=== PATIENT | female | born 1995 | race African-American/Black ===

== ENCOUNTER 2016-08-30 08:21 | Emergency (ER) | payer OTHER ==
[~2016-08-30] VITALS: Ht 165.1 cm; Wt 63.3 kg
[~2016-08-30 08:21] MED LIST: ONETAB17; Z.0.NO CURRENT MEDS
[2016-08-30 08:24] VITALS: BP 107/73; PULSE 85; RESP 14; TEMP 97; O2SAT 100
[2016-08-30 08:41] LABS: BLOOD, URINE SMALL (NEG); GLUCOSE,URINE NEG (NEG); KETONE, URINE NEG (NEG); NITRITE,URINE POS (NEG)
[2016-08-30 08:42] LABS: URINE COLOR YELLOW (YELLW/STRAW)
[2016-08-30 08:49] LABS: WBC, URINE INNUM /hpf (0-5)
[2016-08-30 08:50] LABS: BACTERIA, URINE MOD /hpf
[2016-08-30 08:52] LABS: COMMENT (UR) CULTURE INDICATED; CULTURE IF INDICATED CULTURE INDICATED; MUCUS URINE FEW /lpf (OCC)
[2016-08-30] MEDS ORDERED: PYRI200T4 PO (09:01)
[2016-08-30] MEDS ORDERED: MACR100C2 PO (09:01)
--- NOTE | 2016-08-30 09:02 | PD ---
HPI Chief Complaint: Complaint Time Seen by Provider: 08:46 Travel History International Travel<30 days: No Contact w/Intl Traveler<30days: No Traveled to known affect area: No History of Present Illness HPI This is a 21-year-old female who presents to the emergency department with 2 weeks of dysuria, urgency, frequency, constant, worsening with some intermittent low back pains. She denies any fevers or chills and denies any vomiting. She says she went to Dr. Marin last week and was checked for STDs and everything was normal. She denies any vaginal discharge.. PFSH Past Medical History Medical History: Denies Significant Hx Immunizations Current: Yes Influenza Vaccination: No ?: Not LMP: 3 weeks ago, irr. Past Surgical History Surgical History: No Previous Surgery Social History Alcohol Use: Yes (OCCAS) Tobacco Use: No Substance Use: Yes (MARIJUANA) Allergies-Medications (Allergen,Severity, Reaction): Uncoded Allergies: FIGS (Adverse Reaction, Severe, Swelling, 08/30/16) Reported Meds & Prescriptions Reported Meds & Active Scripts Active No Active Prescriptions or Reported Medications Review of Systems Except as stated in HPI: all other systems reviewed are Neg Physical Exam Narrative GENERAL:Well appearing, no acute distress SKIN: Warm and dry. HEAD: Atraumatic. Normocephalic. EYES: Pupils equal and round. No injection or drainage. ENT: Moist mucous membranes NECK: Trachea midline. CARDIOVASCULAR: Regular rate and rhythm. No murmur appreciated. RESPIRATORY: Clear to auscultation. Breath sounds equal bilaterally. GASTROINTESTINAL: Abdomen soft, mildly tender to palpation in the suprapubic region with no rebound or guarding.. MUSCULOSKELETAL: No obvious deformities. NEUROLOGICAL: Awake and alert. No obvious cranial nerve deficits. Moving all extremities. PSYCHIATRIC: Appropriate mood and affect; insight and judgment normal. Data Data Last Documented VS Vital Signs Date Time Temp Pulse Resp B/P Pulse Ox O2 Delivery O2 Flow Rate FiO2 08/30/16 08:24 97.0 85 14 107/73 100 Orders Urinalysis - C+S If Indicated (08/30/16 08:27) Ed Urine Pregnancytest Poc (08/30/16 08:27) Urine Culture (08/30/16 08:30) Labs Laboratory Tests Test 08/30/16 08:30 Urine Color YELLOW Urine Turbidity HAZY Urine pH 7.0 Urine Specific [place] 1.024 Urine Protein 30 mg/dL Urine Glucose (UA) NEG mg/dL Urine Ketones NEG mg/dL Urine Occult Blood SMALL Urine Nitrite POS Urine Bilirubin NEG Urine Leukocyte Esterase LARGE Urine RBC 4-9 /hpf Urine WBC INNUM /hpf Urine Squamous Epithelial 6-8 /hpf Cells Urine Bacteria MOD /hpf Urine Mucus FEW /lpf Microscopic Urinalysis Comment CULTURE INDICATED MDM Medical Decision Making Medical Screen Exam Complete: Yes Emergency Medical Condition: Yes Interpretation(s) afebrile, no tachycardia, normotensive urinalysis: no infection Differential Diagnosis Urinary tract infection, pyelonephritis, nephrolithiasis, vaginitis Narrative Course This is a 21-year-old female who presents to the emergency department with dysuria, urgency and frequency classic for urinary tract infection. She is nontoxic appearing. Urinalysis is consistent with UTI. Patient will be discharged on Macrobid and can follow-up with her primary care physician as needed. Diagnosis Primary Impression: Urinary tract infection Qualified Code: N30.00 - Acute cystitis without hematuria Patient Instructions: General Instructions Additional Instructions: If you develop fever, persistent vomiting, back pain, or inability to eat return to the emergency department as your urine infection may have progressed to a kidney infection. Complete your antibiotics as prescribed. Stay well hydrated with Gatorade or water. Followup with your primary care physician in 2-3 days if your symptoms have not resolved. Med/Other Pt SpecificInfo: Prescription(s) given Scripts Phenazopyridine (Pyridium)200 Mg Oql215 Mg PO Q8H PRN (DYSURIA) 3 Days Ref 0 Prov:Lissette Lawrence MD 08/30/16 Nitrofurantoin Monohydrate Macrocrystals (Macrobid)100 Mg Cds506 Mg PO BID 7 Days Prov:Lissette Lawrence MD 08/30/16 Disposition: 01 DISCHARGE HOME Condition: Stable Lissette Lawrence MD Aug 30, 2016 09:02
== END 2016-08-30 09:19 | disposition home or self-care (01) ==
LOC: PHED 08:21
DX: N39.0 Urinary tract infection, site not specified (principal); B96.20 Unspecified Escherichia coli [E. coli] as the cause of diseases classified elsewhere
CPT/HCPCS: 81001; 84703; 87077; 87086; 87186; 99283

== ENCOUNTER 2017-02-06 15:39 | Emergency (ER) | payer OTHER ==
[~2017-02-06] VITALS: Ht 154.9 cm; Wt 60.0 kg
[~2017-02-06 15:39] MED LIST changes: +MACR100C2 PO; -ONETAB17; +PYRI200T4 PO; -Z.0.NO CURRENT MEDS
[2017-02-06 15:41] VITALS: BP 100/59; PULSE 120; RESP 20; TEMP 98.9; O2SAT 98
--- NOTE | 2017-02-06 15:58 | PD ---
HPI . right leg laceration Chief Complaint: Laceration/Skin Injury Time Seen by Provider: 15:57 Travel History International Travel<30 days: No Contact w/Intl Traveler<30days: No Traveled to known affect area: No History of Present Illness HPI 21-year-old female who was up-to-date on her tetanus shot here with a right leg laceration. Patient forgot her keys in the house and was trying to break into a window when she cut her lateral right leg. She denies any pain at this time. Bleeding is controlled. PFSH Past Medical History Immunizations Current: Yes ?: Not LMP: 02/06/17 Social History Alcohol Use: Yes (OCCAS) Tobacco Use: No Substance Use: Yes (MARIJUANA) Allergies-Medications (Allergen,Severity, Reaction): Uncoded Allergies: FIGS (Adverse Reaction, Severe, Swelling, 08/30/16) Reported Meds & Prescriptions Reported Meds & Active Scripts Active Pyridium (Phenazopyridine HCl) 200 Mg Tab 200 Mg PO Q8H PRN 3 Days Macrobid (Nitrofurantoin Monoh/Nitrofur Macro) 100 Mg Cap 100 Mg PO BID 7 Days Review of Systems General / Constitutional: No: Fever Eyes: No: Visual changes HENT: No: Headaches Cardiovascular: No: Chest Pain or Discomfort Respiratory: No: Shortness of Breath Gastrointestinal: No: Abdominal Pain Genitourinary: No: Dysuria Musculoskeletal: No: Pain Skin: Positive Other (right leg laceration ), No Rash Neurologic: No: Weakness Psychiatric: No: Depression Endocrine: No: Polydipsia Hematologic/Lymphatic: No: Easy Bruising Physical Exam Narrative GENERAL: AAO x 3, no acute distress, Well-nourished, well-developed patient. SKIN: Warm and dry. No visible rashes or bruising. 9 cm laceration on the right lateral calf, no visible tendon, muscle, vessel or bone. mild bleeding HEAD: Normocephalic and atraumatic. EYES: No scleral icterus. No injection or drainage. ENT: No nasal drainage noted. Mucous membranes pink. Airway patent. NECK: Supple, trachea midline. No JVD. CARDIOVASCULAR: tachycardia (nervous about laceration) prior to dc hr reduced to 100 RESPIRATORY: Breath sounds equal bilaterally. No accessory muscle use. No rhonchi or rales. GASTROINTESTINAL: visual inspection EXTREMITIES: No cyanosis or edema. laceration to right lateral leg, all digits move normally, pulses intact BACK: No obvious deformity. 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 Data Data Last Documented VS Vital Signs Date Time Temp Pulse Resp B/P Pulse Ox O2 Delivery O2 Flow Rate FiO2 02/06/17 15:41 98.9 120 20 100/59 98 Room Air Orders Lidocaine 1% Inj (50 Ml) (Xylocaine 1% I (02/06/17 16:00) [facility] Medical Decision Making Medical Screen Exam Complete: Yes Emergency Medical Condition: Yes Medical Record Reviewed: Yes Differential Diagnosis superficial leg laceration, less likely deep tissue injury, skin abrasion Narrative Course 21-year-old female here with a 9 cm laceration to her right lateral leg. Patient gave verbal consent to repair. 18 stanley were placed without incident. I advised patient that this area will likely scar. Recommend removal in 10-14 days. She tells me she will have this done at a primary care provider. We have discussed signs of infection. We discussed generalized wound care. Patient verbalized understanding of instructions, questions were answered, and thanked me for their care. I advised them if their condition worsens, please return to the nearest emergency room for further care. Procedures Procedure Narrative LACERATION LOCATION: Right lateral leg LENGTH: 9 cm NUMBER OF STITCHES/STANLEY: 18 stanley REPAIR: The area of the laceration was prepped with Betadine and sterilely draped. The laceration was infiltrated with 1% lidocaine. The wound was copiously irrigated and explored without evidence of foreign body, tendon injury or neurovascular injury. The wound was closed using stanley. This was a single layer repair. A sterile dressing was applied. The patient was advised to keep the dressing clean and dry. Patient tolerated the procedure well. Diagnosis Primary Impression: Leg laceration Qualified Code: S81.811A - Leg laceration, right, initial encounter Patient Instructions: General Instructions Additional Instructions: Please return to emergency department if your symptoms return or worsen. Follow up with your primary care provider. Take medications as prescribed. Keep area clean and dry. Use gauze as we discussed and change 1-2 times a day. Watch for signs of infection: fever, redness, swelling, warmth, pus or drainage , red streaks around the cut, and increased pain from the area. If you received a tetanus shot, you may experience tenderness at the injection site. This is normal. 18 stnaley will need to be removed in 10-14 days, this can be done here or at your primary care doctor's office. Disposition: 01 DISCHARGE HOME Condition: Stable Ara Alcala Feb 06, 2017 15:58
[2017-02-06] MEDS ORDERED: LIDOCAINE HCL 1% 50 ML VIAL INFIL ONE (16:00)
== END 2017-02-06 16:45 | disposition home or self-care (01) ==
LOC: NEPK 15:39
DX: S81.811A Laceration without foreign body, right lower leg, initial encounter (principal); R00.0 Tachycardia, unspecified; Z79.899 Other long term (current) drug therapy; W25.XXXA Contact with sharp glass, initial encounter; Y92.009 Unspecified place in unspecified non-institutional (private) residence as the place of occurrence of the external cause
CPT/HCPCS: 12004

== ENCOUNTER 2017-02-16 15:02 | Emergency (ER) | payer OTHER ==
[~2017-02-16] VITALS: Ht 165.1 cm; Wt 60.0 kg
[2017-02-16 15:04] VITALS: BP 122/71; PULSE 81; RESP 16; TEMP 99.3; O2SAT 99
[2017-02-16] MEDS ORDERED: CEPH-459 PO (17:57)
--- NOTE | 2017-02-16 18:00 | PD ---
HPI Chief Complaint: Wound/Suture/Staple Re-Check Time Seen by Provider: 17:35 Travel History International Travel<30 days: No Contact w/Intl Traveler<30days: No Traveled to known affect area: No History of Present Illness HPI 21 old female presents emergency department for staple removal to her right lower extremity. Patient sustained a laceration approximately 7 days ago. She had stanley placed in the emergency department. She reports small amount of purulent drainage from the site and increased pain. She denies fever or chills. No aggravating or alleviating factors. Symptoms severity mild PFSH Past Medical History Medical History: Denies Significant Hx Immunizations Current: Yes Tetanus Vaccination: < 5 Years ?: Not Past Surgical History Surgical History: No Previous Surgery Social History Alcohol Use: Yes (OCCAS) Tobacco Use: No Substance Use: No Allergies-Medications (Allergen,Severity, Reaction): Uncoded Allergies: FIGS (Adverse Reaction, Severe, Swelling, 08/30/16) Reported Meds & Prescriptions Reported Meds & Active Scripts Active Review of Systems Except as stated in HPI: all other systems reviewed are Neg General / Constitutional: No: Fever Physical Exam Narrative GENERAL: Well-nourished, well-developed patient. SKIN: Focused skin assessment warm/dry. HEAD: Normocephalic. EYES: No scleral icterus. No injection or drainage. NECK: Supple, trachea midline. No JVD or lymphadenopathy. CARDIOVASCULAR: Regular rate and rhythm without murmurs, gallops, or rubs. RESPIRATORY: Breath sounds equal bilaterally. No accessory muscle use. GASTROINTESTINAL: Abdomen soft, non-tender, nondistended. MUSCULOSKELETAL: No cyanosis, or edema. Right lower extremity: healing laceration today lateral aspect of the right lower extremity. [address] Small amount of purulent drainage at the site and stanley. Mild tenderness. No fluctuance. No surrounding cellulitis. BACK: Nontender without obvious deformity. No CVA tenderness. Data Data Last Documented VS Vital Signs Date Time Temp Pulse Resp B/P Pulse Ox O2 Delivery O2 Flow Rate FiO2 02/16/17 15:04 99.3 81 16 122/71 99 Room Air MDM Medical Decision Making Medical Screen Exam Complete: Yes Emergency Medical Condition: Yes Differential Diagnosis Staple removal, wound recheck Narrative Course 21-year-old female presents emergency department for staple removal from her right lower extremity. Patient reports she had the wound repaired approximately 7 days ago. She reports some Prelone drainage from the site and increased tenderness. On exam she appears to have mild wound infection. 16 stanley were removed from the right lower extremity wound edges are well approximated except for a 2 cm area which is slightly overlapped and dehisced skin. Patient we put on Keflex antibiotics for wound infection and instructed to follow-up the primary care provider. She agrees to plan Procedures Procedure Narrative Staple removal: 16 Stanley removed from right lower extremity. Patient tolerated procedure well. Diagnosis Primary Impression: Visit for suture removal Additional Impression: Wound infection Referrals: [facility] Scripts Cephalexin (Keflex)250 Mg [id number] Mg PO Q6H #28 CAP Prov:Cathy Osborne 02/16/17 Cathy Osborne Feb 16, 2017 18:00
== END 2017-02-16 18:21 | disposition home or self-care (01) ==
LOC: NEPK 15:09
DX: Z48.02 Encounter for removal of sutures (principal)
CPT/HCPCS: 99283

== ENCOUNTER 2018-01-13 07:52 | Emergency (ER) | payer OTHER ==
[~2018-01-13] VITALS: Ht 165.1 cm; Wt 71.0 kg
[~2018-01-13 07:52] MED LIST changes: +CEPH-459 PO; -MACR100C2 PO; -PYRI200T4 PO
[2018-01-13 07:56] VITALS: BP 131/85; PULSE 76; RESP 16; TEMP 97.7; O2SAT 100
[2018-01-13] MEDS ORDERED: SODIUM CHLORIDE 0.9% FLUSH 10 ML FLUSH IVF PRN (08:15)
[2018-01-13 08:20] VITALS: O2SAT 100
[2018-01-13 08:26] LABS: AUTOMATED NEUTROPHIL # 1.9 TH/MM3 (1.8-7.7); BASOPHIL % 0.7 % (0.0-2.0); EOSINOPHIL # 0.6 TH/MM3 (0-0.4); EOSINOPHIL % 10.4 % (0.0-4.0); LYMPH % 48.5 % (9.0-44.0); LYMPHOCYTE # 2.7 TH/MM3 (1.0-4.8); MEAN CELL VOLUME 86.8 FL (80.0-100.0); MEAN CORPUSCULAR HGB CONC 32.2 % (32.0-36.0); MEAN PLATELET VOLUME 8.6 FL (7.0-11.0); MONOCYTE # 0.4 TH/MM3 (0-0.9); NEUT % 33.4 % (16.0-70.0); PLATELET COUNT 221 TH/MM3 (150-450); RED BLOOD COUNT 3.92 MIL/MM3 (4.00-5.30); RED CELL DISTRIBUTION WIDTH 13.7 % (11.6-17.2); WHITE BLOOD COUNT 5.6 TH/MM3 (4.0-11.0)
--- NOTE | 2018-01-13 08:29 | PD ---
HPI Chief Complaint: Chest Pain Time Seen by Provider: 08:04 Travel History International Travel<30 days: No Contact w/Intl Traveler<30days: No Traveled to known affect area: No History of Present Illness HPI Patient is a 22-year-old female who comes in complaining of chest pain. She says the pain is in the middle of her chest and left side of her breast. She says she has had these pains on and off for several years. She says when the pains come the last for about 30 minutes and then go away on their own. She said she saw her doctor a few years ago of this and she was told she had a heart murmur. She says she has an appointment next week to see her doctor as well. She says the pains have been getting worse, so she came in. She is not currently having pain, but had pain just prior to arrival. She says taking a deep breath makes the pain worse. She denies nausea or vomiting. She denies cough or cold symptoms. She is a non-smoker and denies any history of drug use. Severity is mild. PFSH Past Medical History Cardiovascular Problems: Yes (HEART MURMUR) Immunizations Current: Yes Influenza Vaccination: No ?: Not LMP: NEXPLANON Past Surgical History Surgical History: No Previous Surgery Social History Alcohol Use: Yes ("SOCIALLY") Tobacco Use: No Substance Use: No Allergies-Medications (Allergen,Severity, Reaction): Coded Allergies: No Known Drug Allergies (Verified Allergy, Unknown, 01/13/18) Reported Meds & Prescriptions Reported Meds & Active Scripts Active No Active Prescriptions or Reported Medications Review of Systems Except as stated in HPI: all other systems reviewed are Neg General / Constitutional: No: Fever, Chills HENT: No: Headaches, Lightheadedness Cardiovascular: Positive: Chest Pain or Discomfort Respiratory: No: Cough, Shortness of Breath Gastrointestinal: No: Nausea, Vomiting Musculoskeletal: No: Myalgias, Edema Skin: No Rash, No Change in Pigmentation Neurologic: No: Weakness, Dizziness Physical Exam Narrative GENERAL: Awake and alert, no acute distress. SKIN: Focused skin assessment warm/dry. No wounds or signs of infection. HEAD: Atraumatic. Normocephalic. EYES: Pupils equal and round. No scleral icterus. ENT: No nasal bleeding or discharge. Mucous membranes pink and moist. NECK: Trachea midline. No JVD. CARDIOVASCULAR: Regular rate and rhythm. No murmur appreciated. No chest wall tenderness to palpation. RESPIRATORY: No accessory muscle use. Clear to auscultation. Breath sounds equal bilaterally. GASTROINTESTINAL: Abdomen soft, non-tender, nondistended. MUSCULOSKELETAL: No obvious deformities. No clubbing. No cyanosis. No edema. NEUROLOGICAL: Awake and alert. No obvious cranial nerve deficits. Motor grossly within normal limits. Normal speech. PSYCHIATRIC: Appropriate mood and affect; insight and judgment normal. Data Data Last Documented VS Vital Signs Date Time Temp Pulse Resp B/P (MAP) Pulse Ox O2 Delivery O2 Flow Rate FiO2 01/13/18 08:20 100 Room Air 01/13/18 07:56 97.7 76 16 131/85 (100) Orders Orders Complete Blood Count With Diff (01/13/18 08:13) Comprehensive Metabolic Panel (01/13/18 08:13) D-Dimer (01/13/18 08:13) Prothrombin Time / Inr (Pt) (01/13/18 08:13) Act Partial Throm Time (Ptt) (01/13/18 08:13) Troponin I (01/13/18 08:13) Ecg Monitoring (01/13/18 08:13) Bilateral Bp Monitoring (01/13/18 08:13) Iv Access Insert/Monitor (01/13/18 08:13) Oximetry (01/13/18 08:13) Sodium Chloride 0.9% Flush (Ns Flush) (01/13/18 08:15) Chest, Pa & Lat (01/13/18 08:13) Ed Urine Pregnancytest Poc (01/13/18 08:13) Labs Laboratory Tests Test 01/13/18 08:20 White Blood Count 5.6 TH/MM3 Red Blood Count 3.92 MIL/MM3 Hemoglobin 11.0 GM/DL Hematocrit 34.0 % Mean Corpuscular Volume 86.8 FL Mean Corpuscular Hemoglobin 28.0 PG Mean Corpuscular Hemoglobin Concent 32.2 % Red Cell Distribution Width 13.7 % Platelet Count 221 TH/MM3 Mean Platelet Volume 8.6 FL Neutrophils (%) (Auto) 33.4 % Lymphocytes (%) (Auto) 48.5 % Monocytes (%) (Auto) 7.0 % Eosinophils (%) (Auto) 10.4 % Basophils (%) (Auto) 0.7 % Neutrophils # (Auto) 1.9 TH/MM3 Lymphocytes # (Auto) 2.7 TH/MM3 Monocytes # (Auto) 0.4 TH/MM3 Eosinophils # (Auto) 0.6 TH/MM3 Basophils # (Auto) 0.0 TH/MM3 CBC Comment DIFF FINAL Differential Comment Prothrombin Time 12.0 SEC Prothromb Time International Ratio 1.2 RATIO Activated Partial Thromboplast Time 28.1 SEC D-Dimer Quantitative (PE/DVT) LESS THAN 0.19 MG/L FEU Blood Urea Nitrogen 10 MG/DL Creatinine 0.81 MG/DL Random Glucose 90 MG/DL Total Protein 8.3 GM/DL Albumin 4.0 GM/DL Calcium Level 8.9 MG/DL Alkaline Phosphatase 74 U/L Aspartate Amino Transf (AST/SGOT) 20 U/L Alanine Aminotransferase (ALT/SGPT) 27 U/L Total Bilirubin 0.3 MG/DL Sodium Level 136 MEQ/L Potassium Level 3.6 MEQ/L Chloride Level 104 MEQ/L Carbon Dioxide Level 23.4 MEQ/L Anion Gap 9 MEQ/L Estimat Glomerular Filtration Rate 108 ML/MIN Troponin I LESS THAN 0.02 NG/ML MDM Medical Decision Making Medical Screen Exam Complete: Yes Emergency Medical Condition: Yes Medical Record Reviewed: Yes Interpretation(s) ECG shows normal sinus rhythm at a rate of 89 ST elevation or depression, normal intervals Differential Diagnosis Costochondritis versus pneumothorax versus pneumonia versus muscle pain versus ACS (unlikely) Narrative Course Patient is a 22-year-old female comes in complaining of chest pain. She has had the pain on and off for several years. Exam shows no acute abnormalities. She is not currently having pain right now. IV established, labs sent. Labs show no acute abnormalities. Chest x-ray performed shows no acute abnormalities. Patient advised to follow-up with her doctor. Advised take ibuprofen if the pain returns. Advised return to the ED as needed for any worsening symptoms. Last 24 hours Impressions Chest X-Ray 01/13/18 0875 Signed Impressions: CONCLUSION: No acute cardiopulmonary process. Diagnosis Primary Impression: Chest pain Qualified Codes: R07.9 - Chest pain, unspecified Patient Instructions: Chest Pain (ED), General Instructions Additional Instructions: Follow-up with your doctor. Take ibuprofen as needed for pain. Return to the ED as needed for any worsening symptoms. Scripts No Active Prescriptions or Reported Meds Disposition: 01 DISCHARGE HOME Condition: Stable Ioana Miranda MD Jan 13, 2018 08:29
[2018-01-13 08:33] LABS: CHLORIDE 104 MEQ/L (98-107); SODIUM (NA) 136 MEQ/L (136-145)
[2018-01-13 08:36] LABS: CALCIUM 8.9 MG/DL (8.5-10.1)
[2018-01-13 08:37] LABS: BICARBONATE 23.4 MEQ/L (21.0-32.0); BLOOD UREA NITROGEN 10 MG/DL (7-18); GLUCOSE,RANDOM 90 MG/DL (74-106)
[2018-01-13 08:40] LABS: ALT (GPT) 27 U/L (10-53); AST (GOT) 20 U/L (15-37); CREATININE 0.81 MG/DL (0.50-1.00); GLOMERULAR FILTRATION RATE 108 ML/MIN (>89)
[2018-01-13 08:41] LABS: TOTAL BILIRUBIN ADULT 0.3 MG/DL (0.2-1.0); TOTAL PROTEIN 8.3 GM/DL (6.4-8.2)
[2018-01-13 08:42] LABS: INTERNATIONAL NORMALIZED RATIO 1.2 RATIO
[2018-01-13 08:43] LABS: ALKALINE PHOSPHATASE 74 U/L (45-117); D-DIMER LESS THAN 0.19 MG/L FEU (0.00-0.50)
[2018-01-13 08:45] LABS: TROPONIN I LESS THAN 0.02 NG/ML (0.02-0.05)
--- NOTE | 2018-01-13 09:09 | RADRPT ---
EXAM DATE: 01/13/2018 8:30 AM EDT AGE/SEX: 22 years / Female INDICATIONS: Chest pain. CLINICAL DATA: This is the patient's initial encounter. Patient reports that signs and symptoms have been present for 2 days and indicates a pain score of 5/10. MEDICAL/SURGICAL HISTORY: . heart murmur None. COMPARISON: No prior exams available for comparison. FINDINGS: PA and lateral views of the chest demonstrate the lungs to be symmetrically aerated without evidence of mass, infiltrate or effusion. The cardiomediastinal contours are unremarkable. Osseous structures are intact. CONCLUSION: No acute cardiopulmonary process. Electronically signed by: Kalyan Hernandez MD 01/13/2018 9:08 AM EDT
[2018-01-13 09:35] VITALS: BP 107/67; PULSE 77; RESP 14; O2SAT 100
--- NOTE | 2018-01-14 15:15 | EKG ---
Date Performed: 01/13/2018 Time Performed: 08:10:12 PTAGE: 22 years EKG: Sinus rhythm NONSPECIFIC T-WAVE ABNORMALITY BORDERLINE ECG Since PREVIOUS TRACING , no significant change noted PREVIOUS TRACIN07/23/2014 10.23 DOCTOR: Solo Jha Interpretating Date/Time 01/14/2018 15:10:31
== END 2018-01-13 09:39 | disposition home or self-care (01) ==
LOC: PHED 07:52
DX: R07.9 Chest pain, unspecified (principal); R94.31 Abnormal electrocardiogram [ECG] [EKG]
CPT/HCPCS: 71046; 80053; 84484; 84703; 85025; 85379; 85610; 85730; 93005